=== PATIENT | male | born 1975 | race Caucasian/White ===

== ENCOUNTER 2017-03-07 23:32 | Emergency (ER) | payer MEDICAID, OTHER ==
[~2017-03-07] VITALS: Ht 172.7 cm; Wt 102.0 kg
[2017-03-08 00:07] VITALS: Ht 172.7 cm; Wt 102.0 kg
[2017-03-08] MEDS ORDERED: ACETAMINOPHEN 325 MG TAB PO ONE (02:30)
[2017-03-08] MEDS ORDERED: ACYCLOVIR 800 MG TAB PO ONE (02:30)
[2017-03-08] MEDS ORDERED: IBUPROFEN 600 MG TAB PO ONE (02:30)
[2017-03-08] MEDS ORDERED: ACYC800T57 PO (02:35)
[2017-03-08] MEDS ORDERED: HYDR-3011 PO (02:35)
--- NOTE | 2017-03-08 02:57 | ERD ---
ER Documentation Chief Complaint Date/Time DATE: 03/08/17 TIME: 02:52 Chief Complaint GENERAL BODY RASH TODAY. HPI 41-year-old male presents here in emergency department for complaints of rash and itching all over the body that started 3 days ago, the itching got worse today. Patient's just recently diagnosed with herpes zoster, shingles. Patient started to have fever today.Patient does not have any headache, changes in balance or memory, denies any cough. Patient denies any dizziness. ROS All systems reviewed and are negative except as per history of present illness. Medications Home Meds Active Scripts Acetaminophen* (Tylophen*) 500 Mg Capsule, 1 CAP PO Q6H Y for PAIN AND OR ELEVATED TEMP, #20 CAP Prov:[facility] DIRECT[facility] 03/08/17 Ibuprofen* (Motrin*) 600 Mg Tab, 600 MG PO Q6H Y for PAIN AND OR ELEVATED TEMP, #30 TAB Prov:JODY DEL CASTILLO NP 03/08/17 Hydroxyzine Hcl* (Hydroxyzine Hcl*) 25 Mg Tablet, 25 MG PO Q8H Y for ITCHING, # 30 TAB Prov:JODY DEL CASTILLO NP 03/08/17 Acyclovir* (Zovirax*) 800 Mg Tablet, 800 MG PO 5 TIMES DAILY for 7 Days, TAB Prov:J[facility] DIRECT[facility] 03/08/17 PMhx/Soc Medical and Surgical Hx: pt denies Medical Hx, pt denies Surgical Hx Hx Alcohol Use: No Hx Substance Use: No Hx Tobacco Use: No Smoking Status: Never smoker FmHx Family History: No coronary disease, No diabetes, No other Physical Exam Vitals Vital Signs Date Time Temp Pulse Resp B/P Pulse Ox O2 Delivery O2 Flow Rate FiO2 03/08/17 03:33 99.9 100 03/08/17 00:07 101.8 115 20 154/95 97 Physical Exam GENERAL: The patient is well developed and appropriate for usual state of health, in no apparent distress. CHEST: Clear to auscultation bilaterally. There are no rales, wheezes or rhonchi. HEART: Regular rate and rhythm. No murmurs, clicks, rubs or gallops. No S3 or S4. ABDOMEN: Soft, nontender and nondistended. Good bowel sounds. No rebound or guarding. No gross peritonitis. No gross organomegaly or masses. No Burgess sign or McBurney point tenderness. BACK: No midline or flank tenderness. EXTREMITIES: Equal pulses bilaterally. There is no peripheral clubbing, cyanosis or edema. No focal swelling or erythema. Full range of motion. Grossly neurovascularly intact. NEURO: Alert and oriented. Cranial nerves 2-12 intact. Motor strength in all 4 extremities with 5/5 strength. Sensation grossly intact. Normal speech and gait. SKIN: Vesicular rash noted all over the body scattered.There is no apparent petechia. The skin is warm and dry. HEMATOLOGIC AND LYMPHATIC: There is no evidence of excessive bruising or lymphedema. No gross cervical, axillary, or inguinal lymphadenopathy. Results 24 hrs Current Medications Medications (Trade) Dose Ordered Sig/Elissa Route PRN Reason Start Time Stop Time Status Last Admin Dose Admin Acetaminophen (Tylenol Tab) 650 mg ONCE ONCE PO 03/08/17 02:30 03/08/17 02:33 DC Ibuprofen (Motrin) 600 mg ONCE ONCE PO 03/08/17 02:30 03/08/17 02:33 DC Acyclovir (Zovirax) 800 mg ONCE ONCE PO 03/08/17 02:30 03/08/17 02:33 DC Patient was given medicines for fever control here in the emergency department. After treatment, patient temperature improved and lower. Patient appears well and is hemodynamically stable. Acyclovir was given here in the ER Procedures/MDM Medical decision making: Patient's symptoms would like it consistent with Varicella, acute chickenpox. No symptoms of encephalitis or pneumonitis or pneumonia complication from varicella, patient does not have any headache, dizziness, changes in balance or memory, patient does not have any cough or shortness of breath or wheezing. Patient advised to return to emergency department if ever he is having no symptoms. Patient was given for acyclovir, hydroxyzine, is advised to follow with primary care doctor in 2-3 days for reevaluation of his return to emergency department for any worsening symptoms. Disposition: Home. Stable. Departure Diagnosis: Primary Impression: Varicella Varicella complications: without complication Qualified Code: B01.9 - Varicella without complication Condition: Stable Patient Instructions: Chickenpox JODY DEL CASTILLO NP Mar 08, 2017 02:57
[2017-03-08] MEDS ORDERED: IBUP-1542 PO (02:58)
[2017-03-08] MEDS ORDERED: ACET500C5 PO (02:58)
[2017-03-08 03:33] VITALS: PULSE 100; TEMP 99.9
== END 2017-03-08 03:38 | disposition home or self-care (01) ==
LOC: FTE 23:32
DX: B01.9 Varicella without complication (principal)
CPT/HCPCS: Z7502; Z7610; 99284